=== PATIENT | male | born 1985 | race African-American/Black ===

== ENCOUNTER 2017-08-11 19:59 | Emergency (ER) | payer OTHER ==
[~2017-08-11] VITALS: Ht 177.8 cm; Wt 83.0 kg
[2017-08-11 20:06] VITALS: BP 132/79
--- NOTE | 2017-08-11 20:27 | NUR ---
PT AMBULATED TO ER BED 11
--- NOTE | 2017-08-11 20:34 | NUR ---
31 y/o m w/c/o headache, sorethroat, nasal congestion and body aches x 4 days. Denies any med hx. no s/s of distress noted at the moment. Er made aware.
--- NOTE | 2017-08-11 20:50 | NUR ---
PT RESTING IN BED, NO S/S OF DISTRESS NOTED AT THE MOMENT.
[2017-08-11 21:14] VITALS: BP 119/77
--- NOTE | 2017-08-11 21:14 | NUR ---
Patient discharged with v/s stable. Written and verbal after care instructions given and explained. Patient alert, oriented and verbalized understanding of instructions. Ambulatory with steady gait. All questions addressed prior to discharge. ID band removed. Patient advised to follow up with PMD OR RETURN BACK IF CONDITION WORSENS. Rx of FLONASE, AND AUGMENTIN given. Patient educated on indication of medication including possible reaction and side effects. Opportunity to ask questions provided and answered.
== END 2017-08-11 21:14 | disposition home or self-care (01) ==
LOC: MED 19:59
DX: J06.9 Acute upper respiratory infection, unspecified (principal); R03.0 Elevated blood-pressure reading, without diagnosis of hypertension
CPT/HCPCS: 99283

== ENCOUNTER 2018-02-22 15:22 | Emergency (ER) | payer OTHER ==
[~2018-02-22] VITALS: Ht 175.3 cm; Wt 78.0 kg
[2018-02-22 15:35] VITALS: BP 119/83
--- NOTE | 2018-02-22 15:45 | NUR ---
pt ambulates w/ steady gait to chair C at this time.
--- NOTE | 2018-02-22 15:47 | NUR ---
32 YO M BIB SELF W/ C/O THROAT PAIN X 2 DAYS. PT REPORTS IT WORSENS WHEN EATING/SWALLOWING. PAIN 9/10 AND SHARP/SEVERE. .PT A&O X 4. GCS 15. CMS INTACT. RR EVEN AND UNLABORED. LUNG SOUNDS BILAT CLEAR. TONSILS APPEAR TO BE SWOLLEN, NO WHITE PATCHES NOTED AT THIS TIME. ER MD MATOS NOTIFIED. PT NEEDS MET. WILL CONTINUE TO MONITOR.
[2018-02-22 15:52] VITALS: BP 119/83
== END 2018-02-22 15:52 | disposition home or self-care (01) ==
LOC: MED 15:22
DX: J02.9 Acute pharyngitis, unspecified (principal)
CPT/HCPCS: 99283

== ENCOUNTER 2018-05-18 15:57 | Emergency (ER) | payer OTHER ==
[~2018-05-18] VITALS: Ht 175.3 cm; Wt 73.5 kg
[2018-05-18 16:11] VITALS: BP 135/77
[2018-05-18] MEDS ORDERED: DEXAMETHASONE 10 MG/ML VIAL IM ONE (16:50)
[2018-05-18] MEDS ORDERED: CLINDAMYCIN 600 MG/4 ML VIAL IM ONE (16:50)
[2018-05-18 18:12] VITALS: BP 133/75
== END 2018-05-18 18:12 | disposition home or self-care (01) ==
LOC: MED 15:57
DX: J35.01 Chronic tonsillitis (principal); R25.2 Cramp and spasm
CPT/HCPCS: 93971; 96372; 99284; J1100; J3490; Q0092

== ENCOUNTER 2019-09-17 18:31 | Emergency (ER) | payer MEDICAID, OTHER ==
[~2019-09-17] VITALS: Ht 180.3 cm; Wt 88.0 kg
[2019-09-17 18:42] VITALS: BP 146/87
[2019-09-17 18:51] VITALS: BP 141/85
--- NOTE | 2019-09-17 18:51 | NUR ---
PT C/O RIGHT-SIDED SUPRAPUBIC AREA BRUISING FOR ABOUT 10 DAYS WITH PRESSURE PAIN /. 3 HEALED SUTURES ON PT'S RIGHT-SIDED CHEST NOTICED. DENIES TRAUMA, INJURY, OR HIT BY SOMEONE. VSS; PATIENT POSITIONED FOR COMFORT; HOB ELEVATED; BEDRAILS UP X1; BED DOWN. ER MD MADE AWARE OF PT STATUS.
--- NOTE | 2019-09-17 19:10 | NUR ---
Pt report given to NEGRA Jasmine. Transfer of care at this time.
--- NOTE | 2019-09-17 19:10 | NUR ---
RECEIVED REPORT FROM NEGRA WORRELL. PATIENT IN STABLE CONDITION, DENIES PAIN, SITTED UPRIGHT, FAMILY AT BEDSIDE. WILL CONTINUE TO MONITOR.
--- NOTE | 2019-09-17 19:43 | NUR ---
Patient discharged with v/s stable. Written and verbal after care instructions given BY and explained. Patient verbalized understanding. Ambulatory with steady gait. All questions addressed prior to discharge. Advised to follow up with PMD.
== END 2019-09-17 19:43 | disposition home or self-care (01) ==
LOC: MED 18:31
DX: L76.32 Postprocedural hematoma of skin and subcutaneous tissue following other procedure (principal); Z48.02 Encounter for removal of sutures
CPT/HCPCS: 99281

== ENCOUNTER 2019-10-24 15:13 | Emergency (ER) | payer SELFPAY ==
[~2019-10-24] VITALS: Ht 180.3 cm; Wt 86.6 kg
[2019-10-24 15:20] VITALS: BP 132/78
--- NOTE | 2019-10-24 15:28 | NUR ---
PT AMBULATED TO BED
[2019-10-24] MEDS ORDERED: ALBUTEROL 0.083% 2.5 MG/3 ML NEBU INH ONE (15:40)
[2019-10-24] MEDS ORDERED: predniSONE 20 MG TAB PO ONE (15:40)
--- NOTE | 2019-10-24 15:43 | NUR ---
X RAY AT BEDSIDE
--- NOTE | 2019-10-24 16:00 | NUR ---
Breathing treatment administered by respiratory therapist at bedside.
--- NOTE | 2019-10-24 16:00 | NUR ---
BIB SELF C/O PRODUCTIVE COUGH X 6 DAYS, REPORTS SPUTUM GREEN COLORED AND OF RECENTLY BLOOD TINGED. NO SOB REPORTED. BILATERAL LUNG SOUNDS: WHEEZING UPON INSPIRATORY PHASE, CLEAR DURING EXHILATION. PT REPORTS SHARP PAIN DURING COUGHING, 8/10. NKA NO PMH
[2019-10-24 16:41] VITALS: BP 129/78
--- NOTE | 2019-10-24 16:42 | NUR ---
Patient discharged with v/s stable. Written and verbal after care instructions given and explained. Patient alert, oriented and verbalized understanding of instructions. Ambulatory with steady gait. All questions addressed prior to discharge. ID band removed. Patient advised to follow up with PMD. Rx of VENTOLIN HFA, MEDROL, PROMETHAZINE given. Patient educated on indication of medication including possible reaction and side effects. Opportunity to ask questions provided and answered.
== END 2019-10-24 16:42 | disposition home or self-care (01) ==
LOC: MED 15:13
DX: J20.9 Acute bronchitis, unspecified (principal); R03.0 Elevated blood-pressure reading, without diagnosis of hypertension
CPT/HCPCS: 71045; 94640; 99283; J7512; J7613; Q0092

== ENCOUNTER 2022-10-16 06:41 | Emergency (ER) | payer MEDICAID ==
[~2022-10-16] VITALS: Ht 177.8 cm; Wt 86.2 kg
[2022-10-16 06:49] VITALS: BP 192/135
--- NOTE | 2022-10-16 06:53 | NUR ---
TO BED AMBULATORY
--- NOTE | 2022-10-16 07:05 | NUR ---
PATIENT PLACED ON BEDSIDE MONITOR. BP 109/73
--- NOTE | 2022-10-16 07:08 | NUR ---
JESSIE CHEUNG AT BEDSIDE
--- NOTE | 2022-10-16 07:13 | NUR ---
REPORT GIVEN TO NEGRA FLEMING. TRANSFER OF CARE.
[2022-10-16] MEDS ORDERED: AMLO10TA89 PO ×2 (07:19→07:34)
--- NOTE | 2022-10-16 07:30 | NUR ---
Patient discharged with v/s stable. Written and verbal after care instructions given and explained. Patient alert, oriented and verbalized understanding of instructions. Ambulatory with steady gait. All questions addressed prior to discharge. ID band removed. Patient advised to follow up with PMD. Rx of AMLODIPINE given. Patient educated on indication of medication including possible reaction and side effects. Opportunity to ask questions provided and answered.
[2022-10-16 07:34] VITALS: BP 179/130
== END 2022-10-16 07:30 | disposition home or self-care (01) ==
LOC: MED 06:41
DX: I10 Essential (primary) hypertension (principal); R55 Syncope and collapse; Z79.899 Other long term (current) drug therapy
CPT/HCPCS: 93005; 99283